=== PATIENT | female | born 1995 | race Asian ===

== ENCOUNTER 2017-07-08 20:25 | Emergency (ER) | payer OTHER ==
[~2017-07-08] VITALS: Ht 162.6 cm; Wt 44.0 kg
[~2017-07-08 20:25] MED LIST: BIRTH CONTROL PILL PO; VYVANSE30 MG PO; ZOFRAN ODT4 MG PO
[2017-07-08 20:52] VITALS: BP 136/98
[2017-07-09] MEDS ORDERED: CLEOCIN300 MG PO (00:45)
[2017-07-09] MEDS ORDERED: MEDROL DOSEPAK4 MG PO (00:45)
== END 2017-07-09 00:53 | disposition home or self-care (01) ==
LOC: EME 20:25
DX: J02.0 Streptococcal pharyngitis (principal); R59.0 Localized enlarged lymph nodes; R11.0 Nausea; R19.7 Diarrhea, unspecified; R10.9 Unspecified abdominal pain; Z88.0 Allergy status to penicillin
CPT/HCPCS: 99281; 99284; J7512